=== PATIENT | female | born 1955 | race African-American/Black ===

== ENCOUNTER 2017-06-26 13:22 | Emergency (ER) | payer OTHER ==
[~2017-06-26] VITALS: Ht 167.6 cm; Wt 78.0 kg
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
[2017-06-26] MEDS ORDERED: ATROPINE SULFATE 1 MG/10 ML DISP.SYRIN IV ONE (13:24)
[2017-06-26] MEDS ORDERED: EPINEPHRINE (1:10,000) SYRINGE 1 MG/10 ML DISP.SYRIN IVP ONE (13:24)
--- NOTE | 2017-06-26 13:24 | NUR ---
CALLED REYNA JEAN-BAPTISTE
--- NOTE | 2017-06-26 13:30 | NUR ---
PATIENT INTUBATED : ET 7.5 , 23 AT LIP VENT: AC 16, TV 500, FIO2 100%, PEEP 5.
[2017-06-26] MEDS ORDERED: PROPOFOL 0 ML IV ONE (13:35)
[2017-06-26] MEDS ORDERED: HEPARIN SODIUM, PORCINE 5000 UNITS/1 ML VIAL ONE (13:48)
--- NOTE | 2017-06-26 13:50 | NUR ---
BLOOD PRESSURE RUNNING LOW, PROPOPHOL DRIP STOPPED AT THIS TIME. PATIENT REMAINS SEDATED.
[2017-06-26] MEDS ORDERED: ASPIRIN 300 MG/SUPP.RECT RC ONE ×2 (13:53→14:00)
[2017-06-26] MEDS ORDERED: PROPOFOL 100 ML IV ONE (14:00)
[2017-06-26] MEDS ORDERED: SUCCINYLCHOLINE CHLORIDE 20 MG/ML VIAL IV ONE (14:00)
[2017-06-26] MEDS ORDERED: HEPARIN SODIUM, PORCINE 5000 UNITS/1 ML VIAL IV ONE (14:00)
[2017-06-26] MEDS ORDERED: IV NS 0.9% 1,000 ML BAG IV ONE (14:00)
[2017-06-26] MEDS ORDERED: ETOMIDATE 2 MG/ML VIAL IV ONE (14:00)
--- NOTE | 2017-06-26 14:02 | NUR ---
NO PULSE UPON PALPATION. CHEST COMPRESSIONS STARTED, MD AT BEDSIDE.
--- NOTE | 2017-06-26 14:04 | NUR ---
1 DOSE OF EPI GIVEN PER MD.
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
--- NOTE | 2017-06-26 14:06 | NUR ---
PULSES PRESENTS ONCE AGAIN. START DOPAMINE PER MD
[2017-06-26 14:10] VITALS: BP 99/68
--- NOTE | 2017-06-26 14:15 | NUR ---
PATIENT TRANSFERRED TO [facility] VIA [facility]. PATIENTS REMAINS SEDATED, TRANSFERRED VIA ACLS PROTOCOL, WITH RN ROQUE IN AMBULANCE.
[2017-06-26] MEDS ORDERED: DOPamine 400 MG in IV D5W 250 ML IV ONE (14:30)
== END 2017-06-26 14:52 | disposition short-term general hospital (02) ==
LOC: ER 13:23
DX: I21.19 ST elevation (STEMI) myocardial infarction involving other coronary artery of inferior wall (principal); I46.9 Cardiac arrest, cause unspecified; I10 Essential (primary) hypertension
CPT/HCPCS: 31500; 71010; 93005; 96361; 96365; 96375; 99291; A4606; J0171; J0330; J0461; J1265; J1644; J3490; J7060; Z7610